=== PATIENT | male | born 1965 | race Asian ===

== ENCOUNTER 2016-11-13 15:25 | Emergency (ER) | payer BC ==
[~2016-11-13] VITALS: Ht 165.1 cm; Wt 73.0 kg
[~2016-11-13 15:25] MED LIST: ALBU18002 INH; CHOL1000 PO
[2016-11-13 15:28] VITALS: TEMP 36.7; Ht 165.1 cm; Wt 73.0 kg
[2016-11-13] MEDS ORDERED: KETOROLAC TROMETHAMINE 60 MG/2 ML VIAL IM STA (15:59)
[2016-11-13] MEDS ORDERED: ASPI81TA28 PO (16:03)
--- NOTE | 2016-11-13 16:15 | EMERGENCY ROOM VISIT NOTE ---
ED Visit Note First contact with patient: 15:31 CHIEF COMPLAINT: Headache which began at the gym HISTORY OF PRESENT ILLNESS: This 51-year-old male patient presented to the emergency department alone, complaining of a gradual onset of a moderate headache, located towards the back of his head, that started approximately 4 hours ago, while performing leg extensions at the gym. The patient states as he was exercising, he felt that he was straining hard, and states that the end of a wrap, he felt a sudden onset of the headache. Patient describes the headache as pressure towards the back of his head. The patient does not have a history of migraines or frequent headaches. The patient does report occasional headaches, often located on the right frontal aspect of the head. The patient states he has never gotten a headache like this while working out.There has been no associated photophobia, phonophobia, nausea or vomiting. The patient denies fever or chills recently, and there is no weakness or numbness of the extremities. There is no difficulty with speech or vision. No trauma to the head and no neck pain. The pain is moderate, constant, and it has remained approximately the same in severity, without improvement or worsening. The patient rates the pain as pressure and 7/10. The patient has taken 2 regular strength Tylenol approximately one hour ago with minimal-no relief. This is not the worst headache of the life. REVIEW OF SYSTEMS: A 10-system review of systems was performed with positives and pertinent negatives listed in the history of present illness. All other systems were reviewed and are negative. ALLERGIES: Shellfish. Patient does report GI upset with taking ibuprofen, however stresses this is not an allergy. MEDICATIONS: Aspirin, albuterol when necessary PMH: Allergic rhinitis, asthma SOCIAL HISTORY: Patient lives locally with his family. He denies tobacco or drug use. He does 1-2 alcoholic beverages per day. PHYSICAL EXAM: Vital Signs: Reviewed Nurse's notes, vital signs stable. GENERAL : 51-year-old male, who appears comfortable, sitting upright in bed, non toxic in appearance, and in no acute distress. MENTAL STATUS: Alert, oriented, and coherent. HEENT: Normocephalic. PERRLA. EOMI. Nares patent without nuchal rigidity. Tympanic membranes pearly white without erythema or effusion bilaterally. Mucous membranes moist. NECK: Supple, no nuchal rigidity, nontender, no lymphadenopathy. HEART: Regular rhythm and normal rate without murmurs, ectopy, gallops, or rubs. LUNGS: Clear to auscultation bilaterally without wheezes, rales or rhonchi. No dullness to percussion. No accessory muscle use. No retractions. SKIN: Normal. NEUROLOGICAL: Pupils are round, equal and react to light. The optic fundi are normal and the discs are flat. The patient moves all extremities well and the gait is normal. EMERGENCY DEPARTMENT COURSE: I examined the patient as above. The patient was also examined by Dr. Renee. We discussed with the patient the risks/benefits of getting a CT of the head vs. no CT of the head and provided the patient with options including: Pain medication in the ED with watchful waiting, pain medication and discharge, getting the CT scan now, and others. The patient chooses to receive pain medication in the ED at this time, and I advised him we will monitor his symptoms here. The patient does report improvement and resolution in his symptoms while in the ED. I did discuss with the patient options for pain management at home, however patient refuses prescription medication, as he will return to the emergency department for CT scan if he experiences ongoing symptoms. The patient was discharged home in stable condition. Differential diagnosis includes acute intracranial bleed, meningitis, encephalitis, mass or mass effect, sinusitis, infection, tumor, migraine, temporal arteritis and carbon monoxide exposure, and tension headache. DIAGNOSIS: Tension headache DISCHARGE INSTRUCTIONS & TREATMENT: You have been treated in the Emergency Department for a Headache. For pain control, you can use the following dgpk-roc-hyumsli medicines (if >12 yo): - Regular strength (325mg/tab) Tylenol (acetaminophen) 2 tabs every 4-6 hours as needed. Do not exceed 12 tablets in a 24 hour period. Avoid taking more than 3 grams (3000 mg) of Tylenol per day. This includes any other sources of acetaminophen you may take on a regular basis. - Regular strength (200 mg/tab) Advil (ibuprofen) 1-2 tabs every 4-6 hours as needed. Do not exceed a dose of 3200 mg per day. Take this medication with food to help prevent GI upset. You should relax in a quiet, dark place for the rest of the day. Avoid any possible triggers including: cigarette smoke, caffeine, nicotine, chocolate, wine, beer, loud noises or music, or bright lights. You should schedule a follow-up appointment in 2-3 days with your Primary Care Provider or established Neurologist for further evaluation and treatment of your Headache. Return to the Emergency Department if your current symptoms worsen despite treatment course outlined above, or if you develop any of the following symptoms : intractable pain despite aforementioned treatment course, visual disturbances , loss of vision, unilateral weakness or facial drooping, slurring of speech, loss of coordination, or loss of consciousness. Current/Historical Medications Scheduled Aspirin (Aspirin Ec), 81 MG PO HS Cholecalciferol (Vitamin D3), 1 TAB PO NOON Scheduled PRN Albuterol Sulfate (Proair Respiclick), 2 PUFFS INH Q4H PRN for SOB/Wheezing Allergies Coded Allergies: Shellfish (Verified Allergy, Unknown, ANAPHYLAXIS, 11/13/16) Ibuprofen (Verified Adverse Reaction, Unknown, GI UPSET, 11/13/16) Vital Signs Date Time Temp Pulse Resp B/P (MAP) Pulse Ox O2 Delivery O2 Flow Rate FiO2 11/13/16 17:20 71 16 121/78 98 11/13/16 16:58 71 16 121/78 98 Room Air 11/13/16 16:40 70 136/73 98 Room Air 11/13/16 15:28 36.7 83 16 36/91 95 Medications Administered Medications (Trade) Dose Ordered Sig/Jose Route Start Time Stop Time Status Last Admin Dose Admin Ketorolac Tromethamine (Toradol Inj) 60 mg NOW STAT IM 11/13/16 15:59 11/13/16 16:01 DC 11/13/16 16:06 60 MG Departure Information Impression Primary Impression: Tension headache Dispostion Home / Self-Care Condition GOOD Referrals Reinaldo Henry M.D. (PCP) Patient Instructions ED Headache Tension, My [facility] Additional Instructions You have been treated in the Emergency Department for a Headache. For pain control, you can use the following tzec-kfo-ncimosf medicines (if >12 yo): - Regular strength (325mg/tab) Tylenol (acetaminophen) 2 tabs every 4-6 hours as needed. Do not exceed 12 tablets in a 24 hour period. Avoid taking more than 3 grams (3000 mg) of Tylenol per day. This includes any other sources of acetaminophen you may take on a regular basis. - Regular strength (200 mg/tab) Advil (ibuprofen) 1-2 tabs every 4-6 hours as needed. Do not exceed a dose of 3200 mg per day. Take this medication with food to help prevent GI upset. You should relax in a quiet, dark place for the rest of the day. Avoid any possible triggers including: cigarette smoke, caffeine, nicotine, chocolate, wine, beer, loud noises or music, or bright lights. You should schedule a follow-up appointment in 2-3 days with your Primary Care Provider or established Neurologist for further evaluation and treatment of your Headache. Return to the Emergency Department if your current symptoms worsen despite treatment course outlined above, or if you develop any of the following symptoms : intractable pain despite aforementioned treatment course, visual disturbances , loss of vision, unilateral weakness or facial drooping, slurring of speech, loss of coordination, or loss of consciousness.
--- NOTE | 2016-11-13 16:52 | EMERGENCY ROOM VISIT NOTE ---
ED Visit Note First contact with patient: 15:31 51-year-old male with a tension-like headache was fully evaluated by Radha Veras PA-C. Please see her note. I also independently evaluated the patient.
[2016-11-13 17:20] VITALS: BP 121/78; PULSE 71; O2SAT 98
== END 2016-11-13 17:21 | disposition home or self-care (01) ==
LOC: C.EDB 15:27
DX: G44.209 Tension-type headache, unspecified, not intractable (principal); Z79.82 Long term (current) use of aspirin; J45.909 Unspecified asthma, uncomplicated

== ENCOUNTER → 2016-11-24 | Outpatient (CLI) | payer BC ==
[~2016-11-24] MED LIST changes: +ASPI81TA28 PO
--- NOTE | 2016-11-24 12:27 | DIAGNOSTIC IMAGING REPORT ---
MR ANGIOGRAPHY OF THE [place] NO CONTRAST CLINICAL HISTORY: EXERTIONAL HEADACHES COMPARISON STUDY: None. A 3-D ohfg-qk-mordxu MR angiographic sequence of the [place] was performed. Both the source and projection images were reviewed. There is no evidence of major intracranial branch occlusion. There is no evidence of intracranial stenosis. There are no lesions suspicious for aneurysm. IMPRESSION: Unremarkable MR angiography of the [place]. Electronically signed by: Han Giordano M.D. 11/24/2016 12:26 PM Dictated Date/Time: 11/24/2016 12:23 PM
== END | disposition home or self-care (01) ==
LOC: C.MRIBC 11:48
PROVIDERS: ATTEND Family Medicine
DX: G44.84 Primary exertional headache (principal)

== ENCOUNTER → 2017-05-20 | Outpatient (CLI) | payer OTHER ==
--- NOTE | 2017-05-20 11:30 | DIAGNOSTIC IMAGING REPORT ---
CHEST 2 VIEWS ROUTINE CLINICAL HISTORY: CHRONIC COUGH dyspnea COMPARISON STUDY: No previous studies for comparison. FINDINGS: The bones soft tissues and hemidiaphragms are normal. The cardiomediastinal silhouette is normal. The lungs are clear. The pulmonary vasculature is normal. IMPRESSION: Negative chest. The above report was generated using voice recognition software. It may contain grammatical, syntax or spelling errors. Electronically signed by: Darrin Munoz M.D. 05/20/2017 11:29 AM Dictated Date/Time: 05/20/2017 11:28 AM
== END | disposition home or self-care (01) ==
LOC: C.RAD1850 11:03
PROVIDERS: ATTEND Family Medicine
DX: R05 Cough (principal)